=== PATIENT | male | born 1990 | race Caucasian/White ===

== ENCOUNTER 2020-04-30 09:18 | Emergency (ER) | payer SELFPAY ==
[~2020-04-30] VITALS: Ht 182.9 cm; Wt 104.5 kg
[~2020-04-30 09:18] MED LIST: ACYCLOVIR400 MG PO; AMOXICILLIN; NAPROXEN500 MG PO; NEXIUM 40MG40 MG PO; NO HOME MEDICATIONS; PEPCID 20MG TAB20 MG PO; PHENERGAN 25 TA25 MG PO; PHENERGAN25 MG RC; PRILOSEC 20MG20 MG PO; ZOFRAN 4MG T4 MG/TAB PO
[2020-04-30 09:26] VITALS: BP 136/88; TEMP 98.7
[2020-04-30] MEDS ORDERED: AMOXICILLIN 50500 MG PO (09:50)
[2020-04-30 09:59] VITALS: PULSE 65
== END 2020-04-30 09:57 | disposition home or self-care (01) ==
LOC: COL.ER 09:18
DX: H66.91 Otitis media, unspecified, right ear (principal); F17.210 Nicotine dependence, cigarettes, uncomplicated; Z88.8 Allergy status to other drugs, medicaments and biological substances